=== PATIENT | male | born 1975 | race African-American/Black ===

== ENCOUNTER 2020-01-02 03:42 | Emergency (ER) | payer BC ==
[~2020-01-02] VITALS: Ht 182.9 cm; Wt 94.8 kg
[~2020-01-02 03:42] MED LIST: ZPAK PO
[2020-01-02 04:18] LABS: HEMATOCRIT 41.4 % (42.0-52.0); HEMOGLOBIN 14.4 gm/dL (14.0-18.0); MCHC 34.7 g/dL (28.0-37.0); MCV 83.4 fL (80.0-100.0); MPV 7.8 fl. (7.2-11.1); RBC 4.97 mil/uL (4.50-6.00); RDW-CV 13.3 % (10.5-14.5); WBC 8.6 thou/uL (4.0-11.0)
[2020-01-02 04:23] LABS: URINE BILIRUBIN NEGATIVE (Negative); URINE BLOOD NEGATIVE (Negative); URINE CLARITY CLEAR; URINE COLOR STRAW; URINE GLUCOSE-RANDOM NEGATIVE (Negative); URINE KETONES NEGATIVE (Negative); URINE LEUKOCYTES NEGATIVE (Negative); URINE NITRITE NEGATIVE (Negative); URINE PROTEIN NEGATIVE (Negative); URINE SPECIFIC GRAVITY <= 1.005 (1.005-1.030); URINE UROBILINOGEN 0.2 E.U./dl (0.2-1.0)
[2020-01-02 04:33] LABS: CALCIUM 8.5 mg/dL (8.5-10.1); CREATININE 1.3 mg/dL (0.6-1.3); POTASSIUM 3.9 mmol/L (3.5-5.1)
[2020-01-02 04:36] LABS: ALBUMIN 3.7 g/dL (3.4-5.0); TOTAL BILIRUBIN 0.3 mg/dL (<0.1-1.0); TOTAL PROTEIN 7.2 g/dL (6.4-8.2)
[2020-01-02] MEDS ORDERED: FLEXERIL PO (04:55)
[2020-01-02] MEDS ORDERED: IBUPROFEN 800800 M1 PO (04:55)
[2020-01-02] MEDS ORDERED: NORCO 5-325 TA1 EAC1 PO (04:55)
[2020-01-02 05:04] VITALS: BP 140/72
--- NOTE | 2020-01-02 10:00 | EKG ---
[place] [address] ELECTROCARDIOGRAM REPORT Name: WALDO HENRIQUEZAL Linda Room: [facility]#: [id number] Admission: 01/02/20 Attend Phys: Discharge: 01/02/20 Date of : 75 Date of Service: 01/02/20 0352 Report #: [id number] THIS REPORT FOR: //name// [facility] ED Test Date: 2020-01-02 Test Time: 03:52:00 Pat Name: ISHMAEL HENRIQUEZ Department: Room: Gender: [employer]: [place] : 1975 Requested By: Mookie Rice Order Number: [id number] MD: Gerard Cole Measurements Intervals [place] Rate: 105 P: 66 AL: 146 QRS: 9 QRSD: 81 T: 0 QT: 334 QTc: 442 Interpretive Statements Sinus tachycardia Probable left atrial enlargement Probable anteroseptal infarct, recent Compared to ECG 11/26/2015 17:54:41 Sinus rhythm no longer present Left ventricular hypertrophy no longer present Myocardial infarct finding still present Electronically Signed On 01-02-2020 9:59:03 CDT by Gerard Cole [email or web address] <ELECTRONICALLY SIGNED> By: Gerard Cole MD, [facility] 01/02/20 0959 [id number] [id number] Gerard Cole MD, [facility] /EPI
== END 2020-01-02 05:06 | disposition home or self-care (01) ==
LOC: M.ERS 03:42
PROVIDERS: Emergency Medicine Emergency Medical Services
DX: M54.2 Cervicalgia (principal)